=== PATIENT | female | born 2000 | race Hispanic/Latino ===

== ENCOUNTER 2020-10-07 11:08 | Day surgery (SDC) | payer OTHER ==
[2020-10-07] MEDS ORDERED: hydrALAZINE 20 MG/ML VIAL SLOW IVP PRN (11:45)
[2020-10-07 12:21] VITALS: BP 112/72; TEMP 98.8; BMI 28.6
[2020-10-07] MEDS ORDERED: Lactated Ringer's 1,000 ML IV SCH ×2 (12:30)
[2020-10-07 13:15] LABS: Bacteria/HPF None Seen HPF (None Seen); Bilirubin Negative (Negative); Blood, Urine Negative (Negative); Clarity Clear (Clear); Glucose, Urine (Dipstick) Normal (Negative); Ketone, Urine Negative (Negative); Leukocyte Negative Leu/uL (Negative); Mucous/LPF Rare LPF (<2+); Nitrite Negative (Negative); Protein, Urine (Dipstick) 10 mg/dL (Neg-Trace); RBC/HPF None Seen HPF (0-3); Specific Gravity, Urine 1.016 (1.002-1.036); Squamous Epithelial 0-3 HPF (0-3); Urobilinogen Normal mg/dL (Less than 2); WBC/HPF 0-3 HPF (0-3)
[2020-10-07 13:36] LABS: FFN Internal QC Analyzer PASS (PASS); FFN Internal QC Cassette PASS (PASS); Fetal Fibronectin Negative (Negative)
--- NOTE | 2020-10-08 01:03 | SS ---
DATE OF ADMISSION: 10/07/2020 DATE OF DISCHARGE: 10/07/2020 REGULAR PHYSICIAN: Kun Saavedra MD EVALUATING PHYSICIAN: Ted Allen MD HISTORY OF PRESENT ILLNESS: Ms. Burden is a 20-year-old G2, P1-0-0-1 with an estimated date of confinement of 12/14/2020, who presents complaining of cramping over the last 2 weeks, more noticeable today. She also reports associated back pain and urinary frequency. She also relates a vaginal discharge. She denies vaginal bleeding or ruptured membranes. Her care has been with Dr. Kun Saavedra. PAST OBSTETRICAL HISTORY: Includes one vaginal delivery at term. She denies any history of labor. PAST MEDICAL HISTORY: None. PAST SURGICAL HISTORY: None. CURRENT MEDICATIONS: vitamins. ALLERGIES: NO KNOWN ALLERGIES. SOCIAL HISTORY: Denies tobacco, alcohol, or drug use. FAMILY HISTORY: Unremarkable. REVIEW OF SYSTEMS: Denies ruptured membranes, vaginal bleeding, or flank pain. PHYSICAL EXAMINATION: VITAL SIGNS: Stable. She is afebrile. GENERAL: She is in no acute distress. ABDOMEN: Soft, nontender, and gravid. PELVIC: Shows the cervix to be closed, 50% effaced, posterior and soft. heart rate tracing is stable. Initially, contractions and irritability are seen. A liter of fluid is ordered and these resolve after that intervention. LABORATORY DATA: Urinalysis returns negative for leukocyte esterase. Microscopic shows no bacteria. VP3 testing is negative. fibronectin testing is negative. ASSESSMENT: 1. 30-2/7 week intrauterine . 2. No evidence of labor. 3. No evidence of urinary tract or vaginal infection. PLAN: The nature of the above was discussed with the patient in detail. She reports at the conclusion of the interview that she has had some diarrhea and a mild sore throat, although she denies fever or shortness of breath. She was told to follow up with Dr. Saavedra and that should her symptoms persist, she may want to consider getting a COVID test. Job ID: [id number]
== END 2020-10-07 14:47 | disposition home or self-care (01) ==
LOC: L&D/OP 11:08
PROVIDERS: ATTEND Family Medicine
DX: O99.891 Other specified diseases and conditions complicating pregnancy (principal); R10.9 Unspecified abdominal pain; M54.9 Dorsalgia, unspecified; R35.0 Frequency of micturition; N89.8 Other specified noninflammatory disorders of vagina; Z3A.30 30 weeks gestation of pregnancy
CPT/HCPCS: 81003; 82731; 87480; 87510; 87660; 96360; 96361; 99284

== ENCOUNTER 2020-11-19 22:01 | Day surgery (SDC) | payer OTHER ==
[2020-11-19] MEDS ORDERED: hydrALAZINE 20 MG/ML VIAL SLOW IVP PRN (22:49)
[2020-11-19 23:19] VITALS: TEMP 98.6; BMI 31.3
--- NOTE | 2020-11-20 01:38 | SS ---
DATE OF ADMISSION: 11/19/2020 DATE OF DISCHARGE: 11/20/2020 REGULAR PHYSICIAN: Kun Saavedra MD EVALUATING PHYSICIAN: Ted Allen MD CHIEF COMPLAINT: Contractions at home. HISTORY OF PRESENT ILLNESS: Ms. Burden is a 20-year-old G2, P1, estimated date of confinement 12/08/2020, who presents complaining of uterine contractions approximately every 5 minutes and 07:00 p.m. She denies ruptured membranes or vaginal bleeding. Her care has been with Dr. Saavedra without complications. PAST OBSTETRICAL HISTORY: Includes one vaginal delivery at term, reportedly 8 pounds 14 ounces. PAST MEDICAL HISTORY: None. PAST SURGICAL HISTORY: None. CURRENT MEDICATIONS: vitamins. ALLERGIES: NO KNOWN ALLERGIES. SOCIAL HISTORY: Denies tobacco, alcohol, or drug use. FAMILY HISTORY: Unremarkable. REVIEW OF SYSTEMS: Denies nausea, vomiting, fever, chills, ruptured membranes, vaginal bleeding. PHYSICAL EXAMINATION: VITAL SIGNS: In triage, her vital signs are stable. She is afebrile. GENERAL: She is in no acute distress. ABDOMEN: Soft, nontender, and gravid. Pelvic examination, cervix is 1 cm dilated, 50% effaced with the vertex at the -2 station. heart rate tracing is stable. There are no decelerations. Uterine contractions are seen every 4 to 5 minutes. The patient is allowed to walk and was re-examined 2 hours later. Her cervical exam was unchanged. ASSESSMENT: 1. 37-week intrauterine . 2. Prodromal labor, no evidence of active labor at this time. PLAN: The patient will be dismissed home with precautions. She understood her discharge instructions and was sent home in good condition. She was told to keep herself well hydrated at home. Job ID: [id number]
== END 2020-11-20 01:17 | disposition home or self-care (01) ==
LOC: L&D/OP 22:01
PROVIDERS: ATTEND Family Medicine
DX: O47.1 False labor at or after 37 completed weeks of gestation (principal); Z3A.37 37 weeks gestation of pregnancy
CPT/HCPCS: 99283

== ENCOUNTER 2020-11-23 01:07 | Inpatient (IN) | payer OTHER ==
[2020-11-23 01:44] VITALS: BMI 34.4
[2020-11-23] MEDS ORDERED: Butorphanol Tartrate 1 MG/ML VIAL ONE (02:18)
[2020-11-23] MEDS ORDERED: hydrALAZINE 20 MG/ML VIAL SLOW IVP PRN ×3 (02:43→11:31)
[2020-11-23] MEDS ORDERED: Promethazine HCl 25 MG/ML VIAL IM PRN ×3 (02:44→11:31)
[2020-11-23] MEDS ORDERED: Morphine 10 MG/ML VIAL SLOW IVP SCH (02:45)
[2020-11-23] MEDS ORDERED: Morphine 4 MG/ML VIAL IM SCH (02:45)
[2020-11-23 04:36] LABS: ALT (SGPT) 85 U/L (8-55); AST (SGOT) 56 U/L (5-34); Albumin 3.1 g/dL (3.5-5.0); Alkaline Phosphatase 217 U/L (40-110); Anion Gap 14 mmol/L (10-20); BUN (Urea Nitrogen) 9 mg/dL (7.0-18.7); Bilirubin, Total 0.6 mg/dL (0.2-1.2); Calc. Creatinine Clearance 196 mL/min (70-130); Calcium 7.9 mg/dL (7.8-10.44); Carbon Dioxide 20 mmol/L (22-29); Chloride 107 mmol/L (98-107); Globulin 3.2 g/dL (2.4-3.5); Glucose 80 mg/dL (70-105); Potassium 3.7 mmol/L (3.5-5.1); Protein, Total 6.3 g/dL (6.0-8.3); Sodium 137 mmol/L (136-145)
[2020-11-23 04:54] LABS: #Eosinphils 0.1 thou/uL (0.0-0.7); #Lymphocytes 1.7 thou/uL (1.20-3.40); #Monocytes 0.6 thou/uL (0.11-0.59); #Neutrophils 8.5 thou/uL (1.40-6.50); %Basophils 0.3 % (0.0-1.0); %Eosinophils 0.5 % (0.0-10.0); %Lymphocytes 15.6 % (21.0-51.0); %Monocytes 5.2 % (0.0-10.0); %Neutrophils 78.4 % (42.0-75.0); Mean Corpuscular HGB CONC 35.1 g/dL (32.0-36.0); Mean Corpuscular Hemoglobin 32.4 pg (27.0-31.0); Mean Corpuscular Volume 92.3 fL (78.0-98.0); Mean Platelet Volume 10.3 fL (7.4-10.4); Platelet Count 83 thou/uL (130-400); Platelet Morphology Comment Appears Decreased; RBC Distribution Width 12.2 % (11.5-14.5); White Blood Cell (WBC) Count 10.8 thou/uL (4.8-10.8)
[2020-11-23] MEDS ORDERED: Ibuprofen 800 MG TAB PO PRN (07:29)
[2020-11-23] MEDS ORDERED: HYDROcodone/Acetaminophen 5/325 mg Tablet PO PRN ×4 (07:29→11:31)
[2020-11-23] MEDS ORDERED: Lidocaine 1% (PF) 30 ML VIAL SC PRN (07:29)
[2020-11-23] MEDS ORDERED: Ondansetron PF 4 MG/2 ML Vial IVP PRN ×3 (07:29→11:31)
[2020-11-23] MEDS ORDERED: Butorphanol Tartrate 1 MG/ML VIAL SLOW IVP PRN (07:29)
[2020-11-23] MEDS ORDERED: NS / Oxytocin 40 units/1000ml 1,000 ML IV PRN (07:29)
[2020-11-23] MEDS ORDERED: Lactated Ringer's 1,000 ML IV SCH (07:30)
[2020-11-23 08:54] LABS: Hemoglobin 10.7 g/dL (12.0-16.0); Mean Corpuscular HGB CONC 31.5 g/dL (32.0-36.0); Mean Corpuscular Hemoglobin 29.5 pg (27.0-31.0); Mean Corpuscular Volume 93.6 fL (78.0-98.0); Platelet Count 95 thou/uL (130-400); RBC Distribution Width 12.5 % (11.5-14.5); Red Blood Cell (RBC) Count 3.62 mill/uL (4.20-5.40); White Blood Cell (WBC) Count 10.5 thou/uL (4.8-10.8)
[2020-11-23] MEDS ORDERED: Calcium Gluc 4.6 MEQ/10 ML (100 MG/ML) SLOW IVP PRN (09:04)
--- NOTE | 2020-11-23 09:08 | PDOC.LDPN ---
Labor & Delivery Progress Note - Subjective Subjective: comfortable - Objective Abnormal vital signs: mild range BPs General: NAD, resting Uterine fundus: non tender Dilation: 4 Effacement: 50% Station: -2 FHT: category 1 [place] contractions every: 3-4 mins AROM: clear fluid - Assessment (1) HELLP (hemolytic anemia/elev liver enzymes/low platelets in ) Code(s): O14.20 - HELLP SYNDROME (HELLP), UNSPECIFIED TRIMESTER Current Visit: Yes Status: Acute -: Patient with thrombocytopenia and elevated liver enzymes, mild range BPs. Will start Magnesium. AROM clear fluid. Continue to monitor.
[2020-11-23] MEDS ORDERED: Magnesium Sulfate 20 gm/500 ml 20 GM/500 ML BAG ONE (09:11)
[2020-11-23] MEDS ORDERED: Fentanyl 4 mcg/Bup 0.1% Cadd 100 ML ONE (09:12)
[2020-11-23 09:13] LABS: Syphilis Antibody Nonreactive (Nonreactive); Syphilis Antibody Index 0.04 S/CO (<1.00 Non-Reactive)
[2020-11-23 09:14] LABS: HBSAg Index 0.17 S/CO (0-0.99); Hep B Surf Ag Non-Reactive S/CO (NonReactive)
[2020-11-23] MEDS ORDERED: Magnesium Sulfate 20 GM/WATER 500 ML BAG IVPB SCH (09:15)
[2020-11-23] MEDS ORDERED: Acetaminophen 325 MG TAB PO PRN (10:41)
[2020-11-23] MEDS ORDERED: diphenhydrAMINE 50 MG/ML VIAL IVP PRN (10:41)
[2020-11-23] MEDS ORDERED: Naloxone HCl 0.4 mg/ml Vial IVP PRN ×2 (10:41)
[2020-11-23] MEDS ORDERED: Lactated Ringer's 500 ML IV PRN (10:41)
[2020-11-23] MEDS ORDERED: ePHEDrine 50 MG/ML VIAL SLOW IVP PRN (10:41)
[2020-11-23] MEDS ORDERED: Communication Order-Pharmacy FS SCH (10:45)
[2020-11-23] MEDS ORDERED: Fentanyl 4 mcg/Bupivacaine 0.1% Cassette 100 ML EPIDURAL SCH (10:45)
[2020-11-23] MEDS ORDERED: NS w/ Oxytocin 30 units 500 ML ONE (11:05)
[2020-11-23] MEDS ORDERED: Preparation H Ointment 28 GM TUBE PR PRN (11:31)
[2020-11-23] MEDS ORDERED: diphenhydrAMINE 25 MG CAP PO PRN (11:31)
[2020-11-23] MEDS ORDERED: Zolpidem Tartrate 5 MG TAB PO PRN (11:31)
[2020-11-23] MEDS ORDERED: Calcium Gluconate 4.6 MEQ in Sodium Chloride 0.9% 100 ML IVPB PRN (11:31)
[2020-11-23] MEDS ORDERED: Benzocaine-Menthol 82.5 ML CAN TOP PRN (11:31)
[2020-11-23] MEDS ORDERED: Misoprostol 200 MCG TAB VAG PRN (11:31)
[2020-11-23] MEDS ORDERED: Lanolin Ointment 7 GM TUBE TOP PRN (11:31)
[2020-11-23] MEDS ORDERED: Milk Of Magnesia 30 ML UDCUP PO PRN (11:31)
[2020-11-23] MEDS ORDERED: Bisacodyl 10 MG SUPP PR PRN (11:31)
--- NOTE | 2020-11-23 11:34 | PDOC.OPDEL ---
OB Operative/Delivery Note Delivery Dr/Surgeon: Penny Pre-Delivery Diagnosis: medically indicated induction Procedure/Post Delivery Dx: spontaneous vaginal delivery Weeks gestation: 37 Anesthesia: epidural - Findings A Sex: female ("Paige") Weight: 6 lb 5.554 oz - 1 min: 9 - 5 min: 9 - Additional Findings/Plan Placenta delivered: spontaneous Repaired Obstetrical Laceration: none Post delivery plan: recovery in LICU
[2020-11-23] MEDS ORDERED: Magnesium Sulfate 20 gm/500 ml 20 GM/500 ML BAG IVPB SCH (11:45)
[2020-11-23] MEDS ORDERED: NS / Oxytocin 40 units/1000ml 1,000 ML IV SCH (11:45)
[2020-11-23 17:50] LABS: SARS-CoV-2 MS2 Positive; SARS-CoV-2 N Gene Negative; SARS-CoV-2 S Gene Negative; SARS-CoV-2 by NAA Not Detected (NotDetected); SARS-CoV-2 orf1ab Negative
[2020-11-23] MEDS: Magnesium Sulfate 20 gm/500 ml 20 GM/500 ML BAG IVPB SCH (19:22)
[2020-11-24] MEDS: Magnesium Sulfate 20 gm/500 ml 20 GM/500 ML BAG IVPB SCH (05:14)
[2020-11-24] MEDS: Ibuprofen 800 MG TAB PO SCH ×3 (05:15→16:43)
[2020-11-24 05:51] LABS: #Basophils 0.1 thou/uL (0.0-0.2); #Eosinphils 0.1 thou/uL (0.0-0.7); #Lymphocytes 1.5 thou/uL (1.20-3.40); #Monocytes 0.3 thou/uL (0.11-0.59); #Neutrophils 5.4 thou/uL (1.40-6.50); %Basophils 0.7 % (0.0-1.0); %Neutrophils 73.3 % (42.0-75.0); Hemoglobin 10.4 g/dL (12.0-16.0); Mean Corpuscular HGB CONC 33.6 g/dL (32.0-36.0); Mean Corpuscular Hemoglobin 30.8 pg (27.0-31.0); Mean Corpuscular Volume 91.7 fL (78.0-98.0); Mean Platelet Volume 10.7 fL (7.4-10.4); Platelet Count 36 thou/uL (130-400); RBC Distribution Width 12.9 % (11.5-14.5); Red Blood Cell (RBC) Count 3.38 mill/uL (4.20-5.40); White Blood Cell (WBC) Count 7.3 thou/uL (4.8-10.8)
--- NOTE | 2020-11-24 07:02 | PDOC.PP ---
Post Progress Note Post Day #: 1 Subjective: Doing well, no complaints this morning other than feeling foggy from magnesium. Denies any PIH sx. PO intake tolerated: yes Flatus: no Ambulation: no Weight Weight 220 lb - Physical Examination General: NAD Respiratory: non-labored breathing Abdominal: lochia (normal), no distention, appropriately TTP Fundus firm & at: below umbilicus Neurological: no gross focal deficits Psychiatric: A&Ox3, normal affect Result Diagrams: 11/24/20 05:25 11/23/20 04:03 Additional Labs: Post Labs Hep Bs Antigen Non-Reactive S/CO (NonReactive) 11/23/20 08:15 Blood Type O POSITIVE 11/23/20 08:35 (1) HELLP (hemolytic anemia/elev liver enzymes/low platelets in ) Code(s): O14.20 - HELLP SYNDROME (HELLP), UNSPECIFIED TRIMESTER Status: Acute (2) (spontaneous vaginal delivery) Code(s): O80 - ENCOUNTER FOR FULL-TERM UNCOMPLICATED DELIVERY Status: Acute - Assessment/Plan Platelets dropped significantly this morning to 36. Will repeat hemagram and CMP at 10:00 to assess trend. Otherwise, d/c magnesium later this morning. Encourage ambulation today. BPs mostly wnl. Continue to monitor.
[2020-11-24] MEDS ORDERED: Varicella virus, LIVE 0.5 ML VIAL SC ONE (11:31)
[2020-11-24] MEDS ORDERED: Adacel (T-DAP) 0.5 ML SYRINGE IM ONE (11:31)
[2020-11-24] MEDS ORDERED: Measles/Mumps/Rubella 10 MCG/0.5 ML VIAL SC ONE (12:00)
[2020-11-24 13:09] LABS: Hemoglobin 10.7 g/dL (12.0-16.0); Mean Corpuscular HGB CONC 36.2 g/dL (32.0-36.0); Mean Corpuscular Hemoglobin 33.4 pg (27.0-31.0); Mean Corpuscular Volume 92.2 fL (78.0-98.0); Mean Platelet Volume 7.3 fL (7.4-10.4); Platelet Count 42 thou/uL (130-400); White Blood Cell (WBC) Count 8.8 thou/uL (4.8-10.8)
[2020-11-24 13:30] LABS: ALT (SGPT) 153 U/L (8-55); AST (SGOT) 73 U/L (5-34); Albumin 2.8 g/dL (3.5-5.0); Alkaline Phosphatase 180 U/L (40-110); Anion Gap 10 mmol/L (10-20); BUN (Urea Nitrogen) 6 mg/dL (7.0-18.7); Bilirubin, Total 0.7 mg/dL (0.2-1.2); Calc. Creatinine Clearance 207 mL/min (70-130); Calcium 6.8 mg/dL (7.8-10.44); Carbon Dioxide 27 mmol/L (22-29); Chloride 108 mmol/L (98-107); Globulin 3.1 g/dL (2.4-3.5); Glucose 93 mg/dL (70-105); Potassium 3.6 mmol/L (3.5-5.1); Protein, Total 5.9 g/dL (6.0-8.3); Sodium 141 mmol/L (136-145)
[2020-11-24] MEDS: Ferrous Sulfate 325 MG TAB PO SCH ×3 (13:30→17:22)
[2020-11-24] MEDS: Docusate Calcium (SURFAK) 240 MG CAP PO SCH ×2 (13:31→20:02)
[2020-11-24] MEDS ORDERED: Lanolin Ointment 7 GM TUBE TOP PRN (15:03)
[2020-11-24] MEDS ORDERED: Milk Of Magnesia 30 ML UDCUP PO PRN (15:03)
[2020-11-24] MEDS ORDERED: hydrALAZINE 20 MG/ML VIAL SLOW IVP PRN (15:03)
[2020-11-24] MEDS ORDERED: Ondansetron PF 4 MG/2 ML Vial IVP PRN (15:03)
[2020-11-24] MEDS ORDERED: Bisacodyl 10 MG SUPP PR PRN (15:03)
[2020-11-24] MEDS ORDERED: Benzocaine-Menthol 82.5 ML CAN TOP PRN (15:03)
[2020-11-24] MEDS ORDERED: NS w/ Oxytocin 30 units 500 ML IVPB SCH (15:15)
[2020-11-24] MEDS: Prenatal Vitamin 1 TAB PO SCH (16:42)
[2020-11-24] MEDS ORDERED: Ferrous Sulfate 325 MG TAB PO SCH (17:00)
[2020-11-24] MEDS ORDERED: Ibuprofen 800 MG TAB PO SCH (22:00)
[2020-11-25 05:39] LABS: Hemoglobin 9.5 g/dL (12.0-16.0); Mean Corpuscular HGB CONC 33.9 g/dL (32.0-36.0); Mean Corpuscular Hemoglobin 31.3 pg (27.0-31.0); Mean Corpuscular Volume 92.3 fL (78.0-98.0); Mean Platelet Volume 10.2 fL (7.4-10.4); Platelet Count 68 thou/uL (130-400); RBC Distribution Width 12.9 % (11.5-14.5); Red Blood Cell (RBC) Count 3.02 mill/uL (4.20-5.40); White Blood Cell (WBC) Count 8.9 thou/uL (4.8-10.8)
[2020-11-25] MEDS: Ibuprofen 800 MG TAB PO SCH ×2 (06:08→06:09)
[2020-11-25] MEDS: Docusate Calcium (SURFAK) 240 MG CAP PO SCH (08:45)
[2020-11-25] MEDS: Prenatal Vitamin 1 TAB PO SCH (08:45)
[2020-11-25] MEDS: Ferrous Sulfate 325 MG TAB PO SCH (08:45)
[2020-11-25] MEDS ORDERED: Prenatal Vitamin 1 TAB PO SCH (09:00)
[2020-11-25 09:28] VITALS: TEMP 97.8
[2020-11-25 13:10] VITALS: BP 131/76
== END 2020-11-25 14:29 | disposition home or self-care (01) | DRG 806 ==
LOC: L&D/OP 01:07 → EEVIPCON 08:00 → L&D 08:00 → 3SE 11-24 16:09
PROVIDERS: ADMIT Family Medicine; ATTEND Family Medicine
PROC: 10E0XZZ Delivery of Products of Conception, External Approach (ICD-10-PCS; principal; 2020-11-23)
PROC: 10907ZC Drainage of Amniotic Fluid, Therapeutic from Products of Conception, Via Natural or Artificial Opening (ICD-10-PCS; 2020-11-23)
DX: O14.24 HELLP syndrome, complicating childbirth (principal); O99.12 Other diseases of the blood and blood-forming organs and certain disorders involving the immune mechanism complicating childbirth; Z37.0 Single live birth; Z3A.37 37 weeks gestation of pregnancy; Z20.822 Contact with and (suspected) exposure to COVID-19; D69.6 Thrombocytopenia, unspecified; R94.5 Abnormal results of liver function studies; Z23 Encounter for immunization
CPT/HCPCS: 36415; 51702; 80053; 81003; 83735; 85025; 85027; 86780; 86850; 86900; 86901; 87340; 87635; 99285; J0595; J2270; J2550; J3475; U0003

== ENCOUNTER 2021-05-30 01:28 | Emergency (ER) | payer OTHER ==
[2021-05-30] MEDS ORDERED: Fentanyl 100 MCG/2 ML VIAL ONE (02:07)
[2021-05-30 02:43] LABS: BHCG - Serum Negative (NEGATIVE); Pregs Control Background? CLEAR/WHITE (CLR/WHITE); Pregs Control Bar Appear? YES (CONTROL BAR)
[2021-05-30] MEDS ORDERED: Iopamidol-370 76% 500 ML 1 ML ONE (09:18)
== END 2021-05-30 04:42 | disposition home or self-care (01) ==
LOC: ERS 01:28 → EEVIPCON 01:28 → ERS 04:42
DX: S00.83XA Contusion of other part of head, initial encounter (principal)
CPT/HCPCS: 70450; 70486; 70498; 71045; 72125; 84703; 96374; J3010; Q9967